=== PATIENT | female | born 2005 | race Hispanic/Latino ===

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

== ENCOUNTER → 2023-12-11 | Emergency (ER) | payer MEDICAID, OTHER ==
[~2023-12-11] VITALS: Ht 167.6 cm; Wt 74.8 kg
[~2023-12-11] MED LIST changes: +CEPH500B PO; +CETI10TA57 PO; +FLUT15.845 NS
[2023-12-11 18:23] VITALS: BP 151/81; PULSE 82; RESP 18
[2023-12-11] MEDS: ACETAMINOPHEN 500 MG TABLET PO ONE (18:39)
== END | disposition home or self-care (01) ==
LOC: EDH 18:16
DX: L73.9 Follicular disorder, unspecified (principal); F41.9 Anxiety disorder, unspecified; Z88.8 Allergy status to other drugs, medicaments and biological substances; Z79.899 Other long term (current) drug therapy; Z86.16 Personal history of COVID-19